=== PATIENT | female | born 1985 | race Caucasian/White ===

== ENCOUNTER → 2017-10-07 10:44 | Outpatient (CLI) | payer BC, SELFPAY ==
[2017-10-07 12:17] LABS: Hematocrit 35.3 % (36-46)
[2017-10-07 12:24] LABS: GTT (PREG) 1 Hour PP 50gm Dose 131 mg/dL (76-139)
== END ==
PROVIDERS: PCP Specialist; Visit Provider Specialist
DX: Z36.9 Encounter for antenatal screening, unspecified (principal); Z3A.25 25 weeks gestation of pregnancy
CPT/HCPCS: 36415; 82950; 85014; 85018

== ENCOUNTER → 2018-01-02 12:05 | Outpatient (CLI) | payer BC, SELFPAY ==
[2018-01-03 11:42] LABS: Strep Grp B PCR POS for Grp B Strep
== END ==
PROVIDERS: Family Provider Specialist; PCP Specialist; Visit Provider Specialist
DX: Z34.83 Encounter for supervision of other normal pregnancy, third trimester (principal)
CPT/HCPCS: 87653

== ENCOUNTER 2018-01-23 11:19 | Outpatient (CLI) | payer BC, SELFPAY ==
--- NOTE | 2018-01-23 12:15 | P.TNLD_ITS ---
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 OB Disposition: home
== END 2018-01-23 12:28 | disposition home or self-care (01) ==
LOC: OB 01-28 08:44
PROVIDERS: PCP Specialist; Visit Provider Specialist
DX: O48.0 Post-term pregnancy (principal); Z3A.40 40 weeks gestation of pregnancy
CPT/HCPCS: 59025; G0378; G0379

== ENCOUNTER 2018-01-27 05:15 | Inpatient (IN) | payer OTHER, SELFPAY ==
[2018-01-27] MEDS: LACTATED RINGERS 1,000 ML 100 ML IV ×2 (06:00→07:42)
[2018-01-27 06:43] LABS: Add Manual Diff / Slide Review NO; Basophils Percent Auto 0.3 % (0-2); Eosinophils Percent Auto 0.3 % (2-4); Hematocrit 38.8 % (36-46); Hemoglobin 13.3 g/dL (12.0-16.0); Lymphocytes Percent Auto 18.1 % (25-40); Mean Corpuscular HGB Conc 34.2 % (30-36); Mean Corpuscular Hemoglobin 32.2 PG (26-34); Mean Corpuscular Volume 94.3 fL (80-100); Monocytes Percent Auto 6.5 % (3-14); Neutrophils Absolute Auto 6800 /uL (3000-5900); Neutrophils Percent Auto 74.8 % (50-75); Platelet Count 191 X10^3/uL (150-400); Red Blood Cell Count 4.11 X10^6/uL (4.0-5.2); Red Cell Distribution Width 13.3 % (11.6-14.8); White Blood Cell Count 9.1 X10^3/uL (4.5-11.0)
[2018-01-27 07:14] VITALS: BP 133/78
[2018-01-27] MEDS: PENICILLIN G POTASSIUM 5,000,000 UNIT in DEXTROSE 5% IN WATER 250 ML IV (07:42)
--- NOTE | 2018-01-27 08:03 | PM.OBHP.1 ---
OB HPI Date/Time Date of admission: 01/27/18 Date Patient Seen: 01/27/18 Time Patient Seen: 08:03 History of Present Condition Chief complaint: evaluation of labor : 3 Para: 2 Estimated Date of Delivery: 01/21/18 Estimated Gestational Age (weeks): 40 Narrative: Karla Johnson is a 32 year old female admitted in active labor History of Present care: good care, initiated at week # (10), number of visits (12) and pounds weight gain (38) Dating criteria: LMP confirmed by 1st trimester US Ultrasounds: normal mid trimester US Obstetrical complications: none Medical complications: none Preadmission Labs Blood type: A (+) positive -: Antibody screen: negative, GBS status: positive, HBsAG: negative, HIV: negative, HSV 1: negative and HSV 2: negative -: Chlamydia screen: not detected and Gonorrhea screen: not detected -: Rubella: immune and Varicella: immune HCAB: negative PAP: Normal 1 hr GTT: 131 Prior (ies) History: 06[birth year]09/2004 41 weeks 8 lb 11 oz male [id number] weeks 7 lb 14 oz female Evaluation Evaluation Baseline heart rate: 145 Variability: Moderate (11-25) monitor accelerations: Present monitor decelerations: Absent Contraction Frequency (minutes): 2 Uterine Contraction Intensity: Strong/Firm Category of Tracing: I Cervical dilation (cm): 1 Cervical effacement (%): 80 station: 0 Laboratory results: Laboratory Tests 01/27/18 01/27/18 06:00 06:00 WBC 9.1 RBC 4.11 Hgb 13.3 Hct 38.8 MCV 94.3 MCH 32.2 MCHC 34.2 RDW 13.3 Plt Count 191 Neut % (Auto) 74.8 Lymph % (Auto) 18.1 L [place] % (Auto) 6.5 Eos % (Auto) 0.3 L Baso % (Auto) 0.3 Neut # (Auto) 6800 H Blood Type A Positive Antibody Screen Negative PFSH Medical History History of thymoma (Resolved) Thymoma, 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 No fevers. No leakage of fluid. Good movement. Irregular contractions. No shortness of breath or chest pain. All systems reviewed & are unremarkable except as noted in HPI and below Exam Vital Signs (past 8 hours): Blood pressure 133/78, pulse of 81, temperature 98.2?- 01/27/18 07:14 Blood Pressure 133/78 Oxygen Delivery Method Room Air Narrative Exam Narrative: HEENT exam within normal limits. Lungs are clear to auscultation and percussion. Heart is regular rate and rhythm no S3-S4 or murmurs. Abdomen is soft, nontender. Fundal height of 40 cm. Extremities without edema and nontender. Uterus Location (Fundal Height): 40 Presentation: vertex Objective Labs Result Diagrams: 01/27/18 06:00 Labs: Laboratory Results - last 24 hr 01/27/18 01/27/18 06:00 06:00 WBC 9.1 RBC 4.11 Hgb 13.3 Hct 38.8 MCV 94.3 MCH 32.2 MCHC 34.2 RDW 13.3 Plt Count 191 Neut % (Auto) 74.8 Lymph % (Auto) 18.1 L [place] % (Auto) 6.5 Eos % (Auto) 0.3 L Baso % (Auto) 0.3 Neut # (Auto) 6800 H Blood Type A Positive Antibody Screen Negative Assessment and Plan (1) Postmaturity , 40-42 weeks gestation: Current visit: No Status: Acute 40week 6 day in active labor. Positive group B strep culture. Patient requested epidural catheter. Will give antibiotics for positive group B strep culture. Anticipate vaginal delivery.
[2018-01-27] MEDS: PENICILLIN G POTASSIUM 3,000,000 UNIT/50 ML FROZ.PIGGY 100 UNIT IV (10:52)
[2018-01-27] MEDS: OXYTOCIN 10 UNIT/ML VIAL IM (11:58)
--- NOTE | 2018-01-27 12:14 | P.PCNOB_ITS ---
Delivery date: 01/27/18 Intrapartal events: None Induction method: none Delivery monitor: external FHT and external uterine Route of delivery: Laceration description: None Estimated blood loss (mL): 150 Anesthesia type: Epidural Narrative: Patient arrived on Labor and delivery in active labor. She received an epidural catheter for pain control. She received 2 doses of IV penicillin for positive group B strep culture. heart tones were category 1 to category 2 throughout labor. There was a prolonged deceleration to the 70s with pushing but resolve with position change and oxygen as well as fluid bolus. The viable female was delivered over an intact perineum and placed immediately on maternal abdomen. After cord stopped pulsating the cord was clamped, cut, and cord bloods obtained. The placenta delivered spontaneously , intact, with 3 vessels. There were no cervical, vaginal, perineal tears. The weighed 9 lb 1 oz, 4134 g. [place] Baby 1: Infant gender: Female Presentation: vertex position: Right Occiput Anterior Placenta delivery description: Spontaneous cord vessel description: 3 Vessels score (1 min): 9 score (5 min): 9 Plan for aftercare: Routine post vaginal delivery
[2018-01-27] MEDS: IBUPROFEN 600 MG TABLET PO ×2 (15:42→23:33)
[2018-01-27 23:33] VITALS: TEMP 36.6
[2018-01-28] MEDS: DOCUSATE 250 MG CAPSULE PO (08:33)
[2018-01-28] MEDS: IBUPROFEN 600 MG TABLET PO (08:33)
--- NOTE | 2018-01-28 10:12 | PM.OBDS.1 ---
Discharge Providers Date of admission: 01/27/18 05:15 Primary care physician: Lesia Bueno MD Consults: 01/27/18 06:22 Consult to Anesthesiology Urgent Comment: Consulting Provider: Anesthesiologist Reason for consultation: Epidural Has provider been notified: No 01/27/18 13:34 Consult to [employer] Routine Comment: Discharge provider: Lesia Bueno MD Discharge Date: 01/28/18 Summary Date Patient Seen: 01/28/18 Time Patient Seen: 10:13 Hospital Course: Patient arrived on Labor and delivery in active labor. She received IV penicillin for positive group B strep culture. She received an epidural catheter for pain control. She had a spontaneous vaginal delivery. She had no vaginal tears. She is breast-feeding without difficulty. No signs or symptoms of preeclampsia. Blood pressure 96/55, pulse is 67, temperature 98.1?. Abdomen is soft, nontender. Uterus is firm, at U, nontender. Mild lochia. Extremities without edema Peripartum Data Infant Delivery Method: Natural Vaginal Laceration description: None Procedures: IV antibiotics, epidural catheter, vaginal delivery complications: none Discharge Diagnosis (1) Postmaturity , 40-42 weeks gestation: Status: Acute (2) Vaginal delivery: Status: Acute Status at Discharge Functional status at discharge: independent ambulation Overall status at discharge: patient is progressing back to baseline Time Spent with Patient Total time spent providing and/or coordinating discharge services: Less than 30 minutes Objective Labs Result Diagrams: 01/27/18 06:00 Discharge Plan Discharge Plan Patient Disposition: Home Discharge Med Rec/Prescriptions Prescriptions: No Action [id number] [id number] [] 28-800 mg-mcg Tablet 1 tab/day PO DAILY RF: 0 Follow up/Referrals: Lesia Bueno MD [Primary Care Provider] - 03/12/18 12:00 am (need time from office) Provider Discharge Instructions Diet: Regular Activity: Nothing in vagina for 4 weeks Skin/Wound/Dressing Care Report to your healthcare provider any signs of infection, such as:: chills, fever, increased pain and unusual drainage Discharge Data Primary Care Provider: Lesia Bueno Attending Provider: Lesia Bueno Admit Date/Time: 01/27/18 05:15
[2018-01-28 10:56] VITALS: BP 96/55; PULSE 67; RESP 16; TEMP 36.7
== END 2018-01-28 12:35 | disposition home or self-care (01) | DRG 807 ==
PROVIDERS: Admitting Provider Specialist; Family Provider Specialist; PCP Specialist; Visit Provider Specialist
DX: O99.824 Streptococcus B carrier state complicating childbirth (principal); Z37.0 Single live birth; Z3A.40 40 weeks gestation of pregnancy
CPT/HCPCS: 01967; 36415; 59050; 59400; 85025; 86850; 86900; 86901; G0379; J2540; J2590